=== PATIENT | female | born 1995 | race Caucasian/White ===

== ENCOUNTER 2019-02-21 19:10 | Observation (INO) | payer OTHER ==
[2019-02-21] MEDS ORDERED: ALBUTEROL NEBULIZED 2.5 MG/3 ML INHALATION STA (19:27)
[2019-02-21] MEDS ORDERED: predniSONE 20 MG TAB PO STA (19:27)
[2019-02-21] MEDS ORDERED: IPRATROPIUM 0.5 MG/2.5 ML NEBU INHALATION STA (19:27)
[2019-02-21 20:10] LABS: Basophils % (A) 0 %; Eosinophils # (A) 0.1 k/uL (0-0.7); Eosinophils % (A) 1 %; HCT 40.4 % (34.0-46.0); HGB 13.6 gm/dL (11.4-16.0); Lymphocytes # (A) 1.8 k/uL (1.0-4.8); Lymphocytes % (A) 17 %; MCH 32.3 pg (25.0-35.0); MCHC 33.7 g/dL (31.0-37.0); MCV 95.9 fL (80.0-100.0); Mean Platelet Volume 7.6; Monocytes # (A) 0.6 k/uL (0-1.0); Monocytes % (A) 6 %; Neutrophils # (A) 7.7 k/uL (1.3-7.7); Neutrophils % (A) 74 %; Platelet Count 260 k/uL (150-450); RBC 4.21 m/uL (3.80-5.40); RDW 12.7 % (11.5-15.5); WBC 10.3 k/uL (3.8-10.6)
--- NOTE | 2019-02-21 20:15 | ED ---
General Adult HPI - General Chief complaint: Shortness of Breath Stated complaint: APRIL Time Seen by Provider: 02/21/19 19:24 Source: patient, RN notes reviewed, old records reviewed Mode of arrival: ambulatory Limitations: no limitations - History of Present Illness Initial comments: 23-year-old female presenting for evaluation of dyspnea. Patient states she's had dyspnea since this morning. She's had a mild sore throat. She does have history of asthma. She reports only a mild cough which is nonproductive. Denies lower extremity pain or swelling. She is not on oral contraceptives. She denies . Denies abdominal pain nausea vomiting. Denies fever. - Related Data Home Medications Medication Instructions Recorded Confirmed Albuterol Inhaler [Ventolin Hfa 1 - 2 puff INHALATION RT-Q6H PRN 02/21/19 02/21/19 Inhaler] Metoprolol Succinate [Toprol XL] 25 mg PO HS 02/21/19 02/21/19 Potassium Chloride [Klor-Con 20] 20 meq PO HS 02/21/19 02/21/19 Allergies Allergy/AdvReac Type Severity Reaction Status Date / Time scallops Allergy Rash/Hives Verified 02/21/19 21:57 Review of Systems ROS Statement: Those systems with pertinent positive or pertinent negative responses have been documented in the HPI. ROS Other: All systems not noted in ROS Statement are negative. Past Medical History Past Medical History: Asthma Additional Past Medical History / Comment(s): sinuse tachycardia Past Surgical History: No Surgical Hx Reported Past Psychological History: No Psychological Hx Reported Smoking Status: Never smoker Past Alcohol Use History: Occasional Past Drug Use History: None Reported - Past Family History Mother Family Medical History: No Reported History Father Family Medical History: No Reported History General Exam Limitations: no limitations General appearance: alert, in no apparent distress Head exam: Present: atraumatic, normocephalic Eye exam: Present: normal appearance, PERRL ENT exam: Present: normal exam. Absent: normal oropharynx (Mild pharyngeal erythema) Neck exam: Present: normal inspection. Absent: tenderness, meningismus Respiratory exam: Present: decreased breath sounds. Absent: respiratory distress Cardiovascular Exam: Present: regular rate, normal rhythm GI/Abdominal exam: Present: soft. Absent: distended, tenderness, guarding Extremities exam: Present: normal inspection, normal capillary refill. Absent: pedal edema, calf tenderness Neurological exam: Present: alert, oriented X3, CN II-XII intact. Absent: motor sensory deficit Psychiatric exam: Present: normal affect, normal mood Skin exam: Present: warm, dry, intact. Absent: cyanosis, diaphoretic Course Vital Signs 02/21/19 02/21/19 02/21/19 19:12 20:03 20:23 Temperature 98 F Pulse Rate 89 72 100 Respiratory 20 18 16 Rate Blood Pressure 127/85 O2 Sat by Pulse 100 Oximetry 02/21/19 21:31 Temperature Pulse Rate 90 Respiratory 18 Rate Blood Pressure 124/84 O2 Sat by Pulse 98 Oximetry EKG Findings - EKG Comments: EKG Findings:: Ventricular rate is 77, FL interval 154, QRS duration 78, QTC 443, no ST segment elevation, she has T-wave flattening in lead 3 Medical Decision Making - Medical Decision Making 23-year-old female history of asthma, sinus tachycardia presenting for evaluation of dyspnea. Patient does endorse a sore throat and mild cough. She has a chest x-ray which is negative for focal pneumonia. She has a normal CBC, normal CMP. She has a negative d-dimer. PERC negative. She has a negative troponin. She's given albuterol and Atrovent without significant improvement in her dyspnea. She's also given steroids in the emergency department. She will be placed in observation for treatment of asthma, dyspnea. - Lab Data Result diagrams: 02/21/19 19:50 02/21/19 19:50 Lab Results 02/21/19 02/21/19 02/21/19 Range/Units 19:50 19:50 19:50 WBC 10.3 (3.8-10.6) k/uL RBC 4.21 (3.80-5.40) m/uL Hgb 13.6 (11.4-16.0) gm/dL Hct 40.4 (34.0-46.0) % MCV 95.9 (80.0-100.0) fL MCH 32.3 (25.0-35.0) pg MCHC 33.7 (31.0-37.0) g/dL RDW 12.7 (11.5-15.5) % Plt Count 260 (150-450) k/uL Neutrophils % 74 % Lymphocytes % 17 % Monocytes % 6 % Eosinophils % 1 % Basophils % 0 % Neutrophils # 7.7 (1.3-7.7) k/uL Lymphocytes # 1.8 (1.0-4.8) k/uL Monocytes # 0.6 (0-1.0) k/uL Eosinophils # 0.1 (0-0.7) k/uL Basophils # 0.0 (0-0.2) k/uL PT 10.5 (9.0-12.0) sec INR 1.0 (<1.2) APTT 24.7 (22.0-30.0) sec D-Dimer <0.17 (<0.60) mg/L FEU Sodium 139 (137-145) mmol/L Potassium 3.8 (3.5-5.1) mmol/L Chloride 106 (98-107) mmol/L Carbon Dioxide 27 (22-30) mmol/L Anion Gap 6 mmol/L BUN 10 (7-17) mg/dL Creatinine 0.63 (0.52-1.04) mg/dL Est GFR (CKD-EPI)AfAm >90 (>60 ml/min/1.73 sqM) Est GFR (CKD-EPI)NonAf >90 (>60 ml/min/1.73 sqM) Glucose 88 (74-99) mg/dL Calcium 9.7 (8.4-10.2) mg/dL Magnesium 1.8 (1.6-2.3) mg/dL Total Bilirubin 0.6 (0.2-1.3) mg/dL AST 22 (14-36) U/L ALT 13 (4-34) U/L Alkaline Phosphatase 48 (38-126) U/L Troponin I (0.000-0.034) ng/mL Total Protein 7.1 (6.3-8.2) g/dL Albumin 4.3 (3.5-5.0) g/dL HCG, Qual Influenza Type A RNA (Not Detectd) Influenza Type B (PCR) (Not Detectd) 02/21/19 02/21/19 02/21/19 Range/Units 19:50 19:50 20:00 WBC (3.8-10.6) k/uL RBC (3.80-5.40) m/uL Hgb (11.4-16.0) gm/dL Hct (34.0-46.0) % MCV (80.0-100.0) fL MCH (25.0-35.0) pg MCHC (31.0-37.0) g/dL RDW (11.5-15.5) % Plt Count (150-450) k/uL Neutrophils % % Lymphocytes % % Monocytes % % Eosinophils % % Basophils % % Neutrophils # (1.3-7.7) k/uL Lymphocytes # (1.0-4.8) k/uL Monocytes # (0-1.0) k/uL Eosinophils # (0-0.7) k/uL Basophils # (0-0.2) k/uL PT (9.0-12.0) sec INR (<1.2) APTT (22.0-30.0) sec D-Dimer (<0.60) mg/L FEU Sodium (137-145) mmol/L Potassium (3.5-5.1) mmol/L Chloride (98-107) mmol/L Carbon Dioxide (22-30) mmol/L Anion Gap mmol/L BUN (7-17) mg/dL Creatinine (0.52-1.04) mg/dL Est GFR (CKD-EPI)AfAm (>60 ml/min/1.73 sqM) Est GFR (CKD-EPI)NonAf (>60 ml/min/1.73 sqM) Glucose (74-99) mg/dL Calcium (8.4-10.2) mg/dL Magnesium (1.6-2.3) mg/dL Total Bilirubin (0.2-1.3) mg/dL AST (14-36) U/L ALT (4-34) U/L Alkaline Phosphatase (38-126) U/L Troponin I <0.012 (0.000-0.034) ng/mL Total Protein (6.3-8.2) g/dL Albumin (3.5-5.0) g/dL HCG, Qual Not Detected Influenza Type A RNA Not Detected (Not Detectd) Influenza Type B (PCR) Not Detected (Not Detectd) Disposition Clinical Impression: Asthma with acute exacerbation, Dyspnea Disposition: ADMITTED IP TO THIS HOSP Condition: Stable Is patient prescribed a controlled substance at d/c from ED?: No Time of Disposition: 21:04 Decision to Admit Reason: Admit from EC Decision Date: 02/21/19 Decision Time: 21:04
[2019-02-21 20:17] LABS: ALT 13 U/L (4-34); AST 22 U/L (14-36); African American GFR (CKD) >90 (>60 ml/min/1.73 sqM); Albumin 4.3 g/dL (3.5-5.0); Alkaline Phosphatase 48 U/L (38-126); Anion Gap 6 mmol/L; Blood Urea Nitrogen 10 mg/dL (7-17); Calcium 9.7 mg/dL (8.4-10.2); Carbon Dioxide 27 mmol/L (22-30); Chloride 106 mmol/L (98-107); Glucose 88 mg/dL (74-99); Magnesium 1.8 mg/dL (1.6-2.3); Non-African American GFR(CKD) >90 (>60 ml/min/1.73 sqM); Potassium 3.8 mmol/L (3.5-5.1); Sodium 139 mmol/L (137-145); Total Bilirubin 0.6 mg/dL (0.2-1.3); Total Protein 7.1 g/dL (6.3-8.2)
[2019-02-21 20:35] LABS: D-Dimer <0.17 mg/L FEU (<0.60); Partial Thromboplastin Time 24.7 sec (22.0-30.0); Prothrombin Time 10.5 sec (9.0-12.0)
--- NOTE | 2019-02-21 20:38 | XR ---
EXAMINATION TYPE: XR chest 2V DATE OF EXAM: 02/21/2019 COMPARISON: NONE HISTORY: Difficulty breathing TECHNIQUE: 2 views FINDINGS: Heart and mediastinum are normal. Lungs are clear. Diaphragm is normal. Bony thorax appears normal. IMPRESSION: Normal chest.
[2019-02-21] MEDS ORDERED: NALOXONE 0.4 MG/ML 1 ML VIAL IV PRN (20:58)
[2019-02-21] MEDS ORDERED: ACETAMINOPHEN TAB 325 MG TAB PO PRN (20:58)
[2019-02-21] MEDS ORDERED: ALBUTEROL NEBULIZED 2.5 MG/3 ML INHALATION PRN (21:00)
[2019-02-21 21:32] VITALS: RESP 18
[2019-02-21] MEDS ORDERED: TEMAZEPAM 15 MG CAP PO PRN (23:37)
[2019-02-21] MEDS ORDERED: ALBUTEROL INHALER 60 PUFF/8 GM INHALER INHALATION PRN (23:37)
[2019-02-22] MEDS: ALBUTEROL NEBULIZED 2.5 MG/3 ML INHALATION SCH ×4 (07:32→19:59)
[2019-02-22] MEDS: predniSONE 50 MG TAB PO SCH (07:45)
[2019-02-22] MEDS ORDERED: METOPROLOL SUCCINATE (ER) 25 MG TAB.ER.24H PO SCH ×2 (12:37→21:00)
[2019-02-22] MEDS: METOPROLOL SUCCINATE (ER) 25 MG TAB.ER.24H PO SCH (13:39)
[2019-02-22] MEDS ORDERED: guaiFENesin-DM 100-10MG/5ML 10 ML CUP PO PRN (14:53)
--- NOTE | 2019-02-22 14:53 | P.HPIM ---
History of Present Illness This is a pleasant 23 years old female with past medical history of asthma. Presents because of worsening shortness of breath Of 1-2 days of duration associated with some cough. No significant chest pain. Patient has been asthm aticus and she was a kid. She got a CAT recently. She is not a smoker. She also has a history of tachycardia that she follows up with her vocal artist that was about 3 months ago with sinus tachycardia and started on metoprolol. No other complaint no chest pain. When a the patient she was resting in bed not in significant respiratory distress Vital signs stable. She is saturating 99% on room air. All labs look good and are unremarkable. d-dimer is negative with less than 0.17. s, Influenza is negative. EKG: Showing sinus rhythm at a normal range with 77 bpm, chest x-ray: No acute process. On admission patient was started on steroids, bronchodilators Review of Systems CONSTITUTIONAL: No fever, no malaise, no fatigue. HEENT: No recent visual problems or hearing problems. Denied any sore throat. CARDIOVASCULAR: No orthopnea, PND, no palpitations, no syncope. PULMONARY: No shortness of breath, no cough, no hemoptysis. GASTROINTESTINAL: No diarrhea, no nausea, no vomiting, no abdominal pain. Normoactive bowel sounds. NEUROLOGICAL: No headaches, no weakness, no numbness. HEMATOLOGICAL: Denies any bleeding or petechiae. GENITOURINARY: Denies any burning micturition, frequency, or urgency. MUSCULOSKELETAL/RHEUMATOLOGICAL: Denies any joint pain, swelling, or any muscle pain. ENDOCRINE: Denies any polyuria or polydipsia. Past Medical History Past Medical History: Asthma Additional Past Medical History / Comment(s): sinuse tachycardia History of Any Multi-Drug Resistant Organisms: None Reported Past Surgical History: No Surgical Hx Reported Past Anesthesia/Blood Transfusion Reactions: No Reported Reaction Smoking Status: Never smoker - Past Family History Mother Family Medical History: No Reported History Father Family Medical History: No Reported History Medications and Allergies Home Medications Medication Instructions Recorded Confirmed Type Albuterol Inhaler [Ventolin Hfa 1 - 2 puff INHALATION RT-Q6H PRN 02/21/1902/21 History Inhaler] Metoprolol Succinate [Toprol XL] 25 mg PO HS 02/21/19 02/21/19 History Potassium Chloride [Klor-Con 20] 20 meq PO HS 02/21/19 02/21/19 History Allergies Allergy/AdvReac Type Severity Reaction Status Date / Time scallops Allergy Rash/Hives Verified 02/21/19 21:57 Physical Exam Vitals: Vital Signs Temp Pulse Pulse Resp BP BP Pulse Ox 02/22/19 13:38 83 117/73 02/22/19 12:00 72 18 02/22/19 11:37 78 02/22/19 11:26 75 02/22/19 08:00 72 18 02/22/19 07:43 90 02/22/19 07:33 88 02/22/19 07:25 97.6 F 72 18 93/53 99 02/22/19 04:14 97.5 F L 98 18 119/74 98 02/22/19 03:53 80 02/22/19 03:06 18 02/22/19 03:05 80 02/21/19 23:01 18 02/21/19 22:07 98.2 F 76 18 121/74 99 02/21/19 21:31 90 18 124/84 98 02/21/19 20:23 100 16 02/21/19 20:03 72 18 02/21/19 19:12 98 F 89 20 127/85 100 Intake and Output 02/21/19 02/22/19 02/22/19 22:59 06:59 14:59 Other: Voiding Method Toilet # Voids 1 3 Weight 57.606 kg GENERAL: The patient is alert and oriented x3, not in any acute distress. Well developed, well nourished. HEENT: Pupils are round and equally reacting to light. EOMI. No scleral icterus. No conjunctival pallor. Normocephalic, atraumatic. No pharyngeal erythema. No thyromegaly. CARDIOVASCULAR: S1 and S2 present. No murmurs, rubs, or gallops. -PULMONARY: Chest is clear to auscultation, mild scattered bilateral expiratory wheezing ABDOMEN: Soft, nontender, nondistended, normoactive bowel sounds. No palpable organomegaly. MUSCULOSKELETAL: No joint swelling or deformity. EXTREMITIES: No cyanosis, clubbing, or pedal edema. NEUROLOGICAL: Gross neurological examination did not reveal any focal deficits. SKIN: No rashes. No petechiae Results CBC & Chem 7: 02/21/19 19:50 02/21/19 19:50 Assessment and Plan Assessment: Acute asthma exacerbation Sinus tachycardia on metoprolol and her rate is controlled Plan: His is a pleasant 23 years old female who presents with acute asthma exacerbation. Continue with steroids. And Robitussin Labs and medication were reviewed.. Continue same treatment. Continue with symptomatic treatment. Resume home medication. Monitor lytes and vitals. DVT and GI prophylaxis. Further recommendations of the clinical course of the patient DVT prophylaxis: Subcutaneous heparin GI Prophylaxis: Pepcid PT/OT: Pending Prognosis is guarded
[2019-02-22] MEDS ORDERED: POTASSIUM CHLORIDE ER 20 MEQ TAB.ER PO SCH (21:00)
[2019-02-23] MEDS: ALBUTEROL NEBULIZED 2.5 MG/3 ML INHALATION SCH ×3 (07:45→15:15)
[2019-02-23 08:01] VITALS: BP 91/57; PULSE 66; TEMP 97.7
[2019-02-23] MEDS: predniSONE 50 MG TAB PO SCH (09:10)
[2019-02-23] MEDS: METOPROLOL SUCCINATE (ER) 25 MG TAB.ER.24H PO SCH (09:10)
[2019-02-23] MEDS ORDERED: ONDANSETRON 4 MG TAB PO PRN (14:51)
--- NOTE | 2019-02-23 17:01 | P.PN ---
Subjective This is a pleasant 23 years old female with past medical history of asthma. Presents because of worsening shortness of breath Of 1-2 days of duration associated with some cough. No significant chest pain. Patient has been asthmaticus and she was a kid. She got a CAT recently. She is not a smoker. 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 No other complaint no chest pain. When a the patient she was resting in bed not in significant respiratory distress Vital signs stable. She is saturating 99% on room air. All labs look good and are unremarkable. d-dimer is negative with less than 0.17. s, Influenza is negative. EKG: Showing sinus rhythm at a normal range with 77 bpm, chest x-ray: No acute process. On admission patient was started on steroids, bronchodilators 02/23/2019 Patient breathing today is back close to normal however on echocardiogram initial report there was suspicion of abnormality and the patient was referring to her heart beating when she came in to the hospital. She has history of tachycardia and she sees her assistant professor of communication as an outpatient. Also was complaining of from nausea with Zofran has been a provided. Patient was instructed about echocardiogram report is pending, she might need cardiology consult depending on the report of the echo. However after I left my encounter with the patient , she did not want to wait for the report, the bedside nurse informed me that the patient want to sign herself out. Before he had a chance to come back to talk the patient she signed leaving AMA. As per nurse's, patient father contacted her and instructed her not to stay in the hospital. Risks are explained to her by staff. Based upon my evaluation patient has capacity to make medical decision Objective - Vital Signs Vital signs: Vital Signs Temp 97.7 F 02/23/19 07:35 Pulse 84 02/23/19 08:00 Resp 18 02/23/19 07:35 BP 91/57 02/23/19 07:35 Pulse Ox 99 02/23/19 07:35 Intake & Output 02/22/19 02/23/19 02/23/19 18:59 06:59 18:59 Intake Total 360 720 120 Balance 360 720 120 Intake: Oral 360 720 120 Other: Voiding Method Toilet Toilet Toilet # Voids 3 3 - Exam GENERAL: The patient is alert and oriented x3, not in any acute distress. Well developed, well nourished. HEENT: Pupils are round and equally reacting to light. EOMI. No scleral icterus. No conjunctival pallor. Normocephalic, atraumatic. No pharyngeal erythema. No thyromegaly. CARDIOVASCULAR: S1 and S2 present. No murmurs, rubs, or gallops. -PULMONARY: Chest is clear to auscultation, mild scattered bilateral expiratory wheezing ABDOMEN: Soft, nontender, nondistended, normoactive bowel sounds. No palpable organomegaly. MUSCULOSKELETAL: No joint swelling or deformity. EXTREMITIES: No cyanosis, clubbing, or pedal edema. NEUROLOGICAL: Gross neurological examination did not reveal any focal deficits. SKIN: No rashes. No petechiae - Labs CBC & Chem 7: 02/21/19 19:50 02/21/19 19:50 Assessment and Plan Assessment: Acute asthma exacerbation Sinus tachycardia on metoprolol and her rate is controlled Plan: His is a pleasant 23 years old female who presents with acute asthma exacerbation. Continue with steroids. And Robitussin. Her asthma is improving, however echo ordered in the emergency room still pending on the report Labs and medication were reviewed.. Continue same treatment. Continue with symptomatic treatment. Resume home medication. Monitor lytes and vitals. DVT and GI prophylaxis. Further recommendations of the clinical course of the patient DVT prophylaxis: Subcutaneous heparin GI Prophylaxis: Pepcid PT/OT: Pending Prognosis is guarded
--- NOTE | 2019-02-23 17:58 | ECHOF ---
Referral Reason:dyspnea MEASUREMENTS -------- HEIGHT: 162.6 cm WEIGHT: 57.6 kg BP: 101/65 RVIDd: 2.5 cm (< 3.3) IVSd: 0.8 cm (0.6 - 1.1) LVIDd: 4.0 cm (3.9 - 5.3) LVPWd: 0.8 cm (0.6 - 1.1) IVSs: 1.3 cm LVIDs: 2.8 cm LVPWs: 1.1 cm LA Diam: 2.7 cm (2.7 - 3.8) Ao Diam: 2.5 cm (2.0 - 3.7) AV Cusp: 1.9 cm (1.5 - 2.6) MV EXCURSION: 16.920 mm (> 18.000) MV EF SLOPE: 152 mm/s (70 - 150) EPSS: 0.5 cm MV E Nikhil: 0.85 m/s MV DecT: 231 ms MV A Nikhil: 0.45 m/s MV E/A Ratio: 1.87 RAP: 5.00 mmHg RVSP: 17.49 mmHg FINDINGS -------- Sinus rhythm. This was a technically good study. The left ventricular size is normal. Left ventricular wall thickness is normal. Overall left vent ricular systolic function is normal with, an EF between 55 - 60 %. The right ventricle is normal in size. Normal LA size by volume 22+/-6 ml/m2. The right atrial size is normal. The atrial septal defect shunts from left to right. There is a small secundum atrial septal defect measuring < 10 mm in diameter. The aortic valve is trileaflet, and appears structurally normal. No aortic stenosis or regurgitation. The mitral valve is normal. There is trace to mild mitral regurgitation. Mild tricuspid regurgitation present. Right ventricular systolic pressure is normal at < 35 mmHg. Trace/mild (physiologic) pulmonic regurgitation. The aortic root size is normal. The inferior vena cava is mildly dilated. There is no pericardial effusion. CONCLUSIONS -------- 1. Sinus rhythm. 2. This was a technically good study. 3. The left ventricular size is normal. 4. Left ventricular wall thickness is normal. 5. Overall left ventricular systolic function is normal with, an EF between 55 - 60 %. 6. The right ventricle is normal in size. 7. Normal LA size by volume 22+/-6 ml/m2. 8. The atrial septal defect shunts from left to right. 9. There is a small secundum atrial septal defect measuring < 10 mm in diameter. 10. The aortic valve is trileaflet, and appears structurally normal. No aortic stenosis or regurgitat ion. 11. There is trace to mild mitral regurgitation. 12. Mild tricuspid regurgitation present. 13. Right ventricular systolic pressure is normal at < 35 mmHg. 14. Trace/mild (physiologic) pulmonic regurgitation. 15. The inferior vena cava is mildly dilated. 16. There is no pericardial effusion. UPHOLSTERER OUTSIDE: Irish Smith RDCS
== END 2019-02-23 15:32 | disposition left against medical advice (07) ==
LOC: EC 19:10 → 1SOBS 20:59
PROVIDERS: ADMIT Hospitalist; ATTEND Hospitalist
DX: J45.901 Unspecified asthma with (acute) exacerbation (principal); R00.0 Tachycardia, unspecified; I07.1 Rheumatic tricuspid insufficiency; I86.8 Varicose veins of other specified sites; Z53.29 Procedure and treatment not carried out because of patient's decision for other reasons; Z79.899 Other long term (current) drug therapy; Z91.013 Allergy to seafood
CPT/HCPCS: 99285; 36415; 94640 ×4; 93005; 93306; 85379; 80053; 83735; 84484; 85025; 85610; 85730; 84703; 87502; 71046; G0378 ×3; J7512 ×3